=== PATIENT | male | born 1990 | race Caucasian/White ===

== ENCOUNTER 2024-07-19 23:54 | Inpatient (IN) | payer OTHER, MEDICAID, SELFPAY ==
[2024-07-20] VITALS (15 sets, daily range): BP systolic 104–126; BP diastolic 54–79; PULSE 94–149; RESP 19–28; TEMP 37.2–39.6; O2SAT 92–99; BMI 17.6; BMI 21.0
--- NOTE | 2024-07-20 00:04 | EKG_ITS ---
[address] [address] [address] [address] Test Date: 2024-07-20 Pat Name: Wilbert Gilmore Department: Room: Gender: Male Assistant Director Of Admissions: COCO LLANES : 1990 Requested By: Order Number: [id number] Reading MD: Olvin Camacho MD Measurements Intervals [place] Rate: 138 P: 44 NH: 134 QRS: 56 QRSD: 96 T: 33 QT: 288 QTc: 436 Interpretive Statements Sinus tachycardia Electronically Signed On 07-21-2024 13:38:33 PST by Olvin Camacho MD
--- NOTE | 2024-07-20 00:06 | ED_ITS ---
HPI - SOB/Dyspnea General Chief Complaint: Shortness of Breath/Dyspnea Stated Complaint: Chest pain, poss pneumonia, labored breathing Time Seen by Provider: 07/20/24 00:01 History of Present Illness HPI Narrative: 33-year-old male with history of eczema, not currently on any systemic medications presents by private vehicle from home for 1 week of gradually worsening cough, fever, shortness of breath. Family members at home tested positive for influenza 1 week ago. Patient states that he has had continued worsening shortness of breath and productive cough, especially at night. Tonight his breathing was even worse than usual and so he decided to come in for evaluation. Normally smokes cigarettes, but was unable to smoke the last week due to how poorly he was feeling. On arrival patient noted to be febrile, tachycardic, saturating 90-93% room air. Sepsis initiated 0004 Related Data Previous Rx's Medication Instructions Recorded halobetasol propionate 0.05 % 1 applic topical BID #50 grams 01/07/24 topical cream Allergies Allergy/AdvReac Type Severity Reaction Status Date / Time No Known Drug Allergies Allergy Unverified 01/07/24 16:58 Patient History Social History Smoking Status: Current every day smoker Smoking Status: Current every day smoker Exam Initial Vital Signs Initial Vital Signs: Vital Signs Pulse Rate 149 H 07/20/24 00:00 Blood Pressure 126/79 07/20/24 00:00 Pulse Oximetry 92 07/20/24 00:00 Oxygen Delivery Method Room Air 07/20/24 00:00 Const: Awake, alert, ill appearing, nontoxic Cardiac: tachycardia, regular rhythm RESP: mild increase work of breathing, no wheezing, no retractions, faint crackles RLL Skin: Warm, Dry, intact Neuro: AO x3, CN II-XII grossly intact, moves all extremities Course Orders Ordered: ED Orders 07/20/24 00:04 XR chest 1V Stat EKG-12 Lead Stat RT Consult Eval and Treat NOW 07/20/24 00:09 Complete Blood Count AUTO DIFF Stat Comprehensive Metabolic Panel Stat Lactate (Lactic Acid) Stat Lipase Stat PTT Partial Thromboplastin Rajiv Stat Procalcitonin Stat Prothrombin Time INR Stat Respiratory Panel (Film Array) Stat 07/20/24 00:15 Blood Culture Stat Acetaminophen (Acetaminophen 325 Mg Tablet) 650 mg PO Q6H PRN PRN Reason: Fever/Mild Pain (1-3) Al Hydrox/Mg Hydrox/Simethicone (Mag Hydrox/Alum/Simeth 30 Ml Udc) 30 ml PO Q6HR PRN PRN Reason: Dyspepsia Enoxaparin Sodium (Enoxaparin 40 Mg/0.4 Ml Syringe) 40 mg SUBCUT DAILY MIGUEL Sodium Chloride (Normal Saline 0.9%) 1,000 mls @ 1,000 mls/hr IV BOLUS ONE Stop: 07/20/24 01:58 Last Admin: 07/20/24 01:22 Dose: 1,000 mls/hr Naloxone HCl (Naloxone 0.4 Mg/Ml Vial) 0.2 mg IV Q2MIN PRN PRN Reason: Opiate Reversal Ondansetron HCl (Ondansetron 4 Mg/2 Ml Inj) 4 mg IV NOW PRN PRN Reason: Nausea And Vomiting Ondansetron HCl (Ondansetron 4 Mg Odt) 4 mg SL NOW PRN PRN Reason: Nausea And Vomiting Ondansetron HCl (Ondansetron 4 Mg/2 Ml Inj) 4 mg IV Q8HR PRN PRN Reason: Nausea And Vomiting Oxycodone HCl (Oxycodone Ir 5 Mg Tablet) 5 mg PO Q3H PRN PRN Reason: Pain, Moderate (4-6) Discontinued Medications Acetaminophen (Acetaminophen 325 Mg Tablet) 975 mg PO NOW ONE Stop: 07/20/24 00:15 Last Admin: 07/20/24 00:17 Dose: 975 mg Sodium Chloride (Normal Saline 0.9%) 1,000 mls @ 1,000 mls/hr IV BOLUS ONE Stop: 07/20/24 01:03 Last Infusion: 07/20/24 00:53 Dose: Infused Ceftriaxone Sodium 2,000 mg/ (Sodium Chloride) 100 mls @ 200 mls/hr IV NOW ONE Stop: 07/20/24 00:11 Last Infusion: 07/20/24 00:53 Dose: Infused Doxycycline Hyclate 100 mg/ (Sodium Chloride) 100 mls @ 100 mls/hr IV NOW ONE Stop: 07/20/24 00:11 Last Admin: 07/20/24 00:52 Dose: 100 mls/hr Vital Signs Vital signs: Vital Signs - 8 hr 07/20/24 00:00 07/20/24 00:00 07/20/24 00:05 Temperature 103.2 F H Pulse Rate 149 H 144 H Respiratory Rate 19 Blood Pressure 126/79 126/79 Pulse Oximetry 92 93 Oxygen Delivery Method Room Air Room Air 07/20/24 00:30 07/20/24 00:30 07/20/24 01:00 Temperature Pulse Rate 118 H Respiratory Rate 20 Blood Pressure 116/62 113/55 L Pulse Oximetry 92 Oxygen Delivery Method Room Air 07/20/24 01:00 07/20/24 01:11 07/20/24 01:11 Temperature Pulse Rate 120 H 121 H Respiratory Rate 28 H 25 H Blood Pressure 113/57 L Pulse Oximetry 92 93 Oxygen Delivery Method 07/20/24 01:12 Temperature Pulse Rate 145 H Respiratory Rate 20 Blood Pressure Pulse Oximetry 92 Oxygen Delivery Method MDM - SOB/Dyspnea Differential Diagnosis Differential diagnosis: Likely acute exacerbation of chronic obstructive airways disease, community acquired pneumonia and asthma with exacerbation Lab Data 07/20/24 00:09 07/20/24 00:09 Labs: Lab Results 07/20/24 Range/Units 00:09 WBC 29.2 H (4.5-11.0) X10^3/uL RBC 4.50 (4.5-5.9) X10^6/uL Hgb 12.5 L (13.5-17.5) g/dL Hct 36.9 L (41-53) % MCV 82.0 (80-100) fL MCH 27.7 (26-34) PG MCHC 33.8 (30-36) % RDW 14.0 (11.6-14.8) % Plt Count 280 (150-400) X10^3/uL Neut % (Auto) Not Reportable Lymph % (Auto) Not Reportable [place] % (Auto) Not Reportable Eos % (Auto) Not Reportable Baso % (Auto) Not Reportable Lymph # (Auto) Not Reportable [place] # (Auto) Not Reportable Baso # (Auto) Not Reportable Total Counted 100 Seg Neutrophils % 77.0 H (38-70) % Band Neutrophils % 7.0 (3-7) % Lymphocytes % (Manual) 7.0 L (25-45) % Monocytes % (Manual) 8.0 (2-11) % Metamyelocytes % 1.0 H (-0) % Neutrophils # (Manual) 21516 H (8037-5533) /uL RBC Morphology Normal morphology PT 18.9 H (9.4-12.5) SECONDS INR 1.7 H (0.9-1.3) APTT 34 (25.1-36.5) SECONDS Sodium 120 L (137-145) mmol/L Potassium 3.1 L (3.4-5.1) mmol/L Chloride 84 L (98-107) mmol/L Carbon Dioxide 28 (22-32) mmol/L BUN 22 H (9-20) mg/dL Creatinine 0.93 (0.66-1.25) mg/dL Estimated GFR > 60 (>60) mL/min BUN/Creatinine Ratio 23.7 H (6-22) Glucose 132 H (70-100) mg/dL Lactate 1.2 (0.7-2.1) mmol/L Calcium 7.9 L (8.4-10.2) mg/dL Total Bilirubin 3.4 H (0.2-1.3) mg/dL AST 74 H (17-59) IU/L ALT 111 H (<50) IU/L Alkaline Phosphatase 318 H (38-126) U/L Total Protein 7.3 (6.3-8.2) g/dL Albumin 3.5 (3.5-5.0) g/dL Globulin 3.8 (1.7-4.1) g/dL Albumin/Globulin Ratio 0.9 L (1.0-2.8) Lipase 19 L (23-300) U/L Procalcitonin 3.84 H (<0.5) ng/mL Chlamy pneumoniae PCR Not detected (Not Detect) Adenovirus (PCR) Not detected (Not Detect) B. pertussis DNA (PCR) Not detected (Not Detect) B.parapertussis DNA PCR Not detected (Not Detecte) Coronavirus OC43 (PCR) Not detected (Not Detect) Coronavirus HKU1 (PCR) Not detected (Not Detect) Coronavirus 229E (PCR) Not detected (Not Detect) SARS-CoV-2 (PCR) Not detected (Not Detecte) Coronavirus NL63 (PCR) Not detected (Not Detect) Human Metapneumovir PCR Not detected (Not Detect) Influenza Type A (PCR) Not detected (Not Detect) Influenza Type B (PCR) Not detected (Not Detect) M. pneumoniae (PCR) Not detected (Not Detect) Parainfluenza 1 (PCR) Not detected (Not Detect) Parainfluenza 2 (PCR) Not detected (Not Detect) Parainfluenza 3 (PCR) Not detected (Not Detect) Parainfluenza 4 (PCR) Not detected (Not Detect) RSV (PCR) Not detected (Not Detect) Entero/Rhino (PCR) Not detected (Not Detect) Imaging Data Chest x-ray: Radiologist's Impression: PROCEDURE: XR CHEST 1V INDICATIONS: suspected sepsis TECHNIQUE: One view of the chest was acquired. COMPARISON: None. FINDINGS: Surgical changes and devices: None. Lungs and pleura: Focal dense consolidation, lower 40% of the right lung field. No pleural effusions or pneumothorax. Mediastinum: Mediastinal contours appear normal. Heart size is normal. Bones and chest wall: No suspicious bony lesions. Overlying soft tissues appear unremarkable. IMPRESSION: Focal dense pneumonia, right lung. Comment: Progress films are recommended until clear. Dictated by: Tanmay Hurtado M.D. on 07/20/2024 at 0:17 Approved by: Tanmay Hurtado M.D. on 07/20/2024 at 0:18 ECG Data Interpretation: Sinus tachycardia at a rate of 138 beats per minute. Normal [place]. No ST T wave changes MDM Narrative Medical decision making narrative: Ill-appearing but nontoxic patient with 1 week of symptoms. Patient reports a brief improvement in his symptoms followed by worsening. Tachycardic, borderline low oxygen saturations on arrival. Sepsis workup initiated, fluids started. IV Rocephin and IV doxycycline ordered for coverage to cover for staph pneumonia. Laboratory work WBC 29.2, hemoglobin 12.5, platelet count 280, sodium 120, potassium 3.1, chloride 84, creatinine 0.93, lactic acid 1.2, calcium 7.9, T bili 3.4, AST 74, ALT 111, Alk phos 318, procalcitonin 3.84. Patient heart rate improving on fluids, but still tachycardic. Saturation stable on room air, however still low 90s. Chest x-ray shows dense right-sided bacterial lobar pneumonia. With numerous lab abnormalities and dense consolidation on exam PORT/PSI score 83 (age 33, liver (20), tachycardia (10), sodium <130 (10). Patient agrees to admission at this time. Discharge Plan Departure Patient Disposition: Admitted as Observation Clinical Impression: Bacterial pneumonia, Sepsis Admit Date/Time: 07/20/24 01:22 Admit Provider: Ganesh Wick
[2024-07-20] MEDS: SODIUM CHLORIDE 0.9% 1,000 ML 1000 ML IV ×2 (00:15→01:22)
[2024-07-20] MEDS: ACETAMINOPHEN 325 MG TABLET 975 MG PO (00:17)
[2024-07-20] MEDS: cefTRIAXone 2,000 MG in SODIUM CHLORIDE 0.9% 100 ML 200 MG IV (00:18)
[2024-07-20 00:29] LABS: Hematocrit 36.9 % (41-53); Hemoglobin 12.5 g/dL (13.5-17.5); Mean Corpuscular HGB Conc 33.8 % (30-36); Mean Corpuscular Hemoglobin 27.7 PG (26-34); Platelet Count 280 X10^3/uL (150-400); White Blood Cell Count 29.2 X10^3/uL (4.5-11.0)
[2024-07-20 00:30] LABS: Add Manual Diff / Slide Review YES; INR 1.7 (0.9-1.3); Prothrombin Time 18.9 SECONDS (9.4-12.5)
[2024-07-20 00:33] LABS: PTT Partial Thromboplastin Tim 34 SECONDS (25.1-36.5)
[2024-07-20 00:35] LABS: Alanine Aminotransferase 111 IU/L (<50); Albumin 3.5 g/dL (3.5-5.0); Albumin Globulin Ratio 0.9 (1.0-2.8); Alkaline Phosphatase 318 U/L (38-126); Aspartate Aminotransferase 74 IU/L (17-59); BUN Creatinine Ratio 23.7 (6-22); Bilirubin Total 3.4 mg/dL (0.2-1.3); Blood Urea Nitrogen 22 mg/dL (9-20); Calcium 7.9 mg/dL (8.4-10.2); Carbon Dioxide 28 mmol/L (22-32); Chloride 84 mmol/L (98-107); Estimated Glomerular Filt Rate > 60 mL/min (>60); Globulin 3.8 g/dL (1.7-4.1); Glucose 132 mg/dL (70-100); HEMOLYSIS < 15 (0-50); Lipase 19 U/L (23-300); Potassium 3.1 mmol/L (3.4-5.1); Sodium 120 mmol/L (137-145); Total Protein 7.3 g/dL (6.3-8.2)
[2024-07-20 00:36] LABS: Lactate (Lactic Acid) 1.2 mmol/L (0.7-2.1)
[2024-07-20 00:43] LABS: Neutrophils Absolute Manual 24528 /uL (3000-5900); RBC Morphology Normal Morphology; Total Cells Counted 100
[2024-07-20 00:52] LABS: Procalcitonin 3.84 ng/mL (<0.5)
[2024-07-20] MEDS: DOXYCYCLINE 100 MG in SODIUM CHLORIDE 0.9% 100 ML IV ×3 (00:52→21:18)
[2024-07-20 01:07] LABS: Adenovirus Not Detected (Not Detect); B. parapertussis Not Detected (Not Detecte); Bordetella pertussis Not Detected (Not Detect); Chlamydophila pneumoniae Not Detected (Not Detect); Coronavirus 229E Not Detected (Not Detect); Coronavirus HKU1 Not Detected (Not Detect); Coronavirus NL 63 Not Detected (Not Detect); Coronavirus OC43 Not Detected (Not Detect); Human Metapneumovirus Not Detected (Not Detect); Human Rhinovirus/Enterovirus Not Detected (Not Detect); Influenza A Not Detected (Not Detect); Influenza B Not Detected (Not Detect); Mycoplasma pneumoniae Not Detected (Not Detect); Parainfluenza Virus 1 Not Detected (Not Detect); Parainfluenza Virus 2 Not Detected (Not Detect); Parainfluenza Virus 3 Not Detected (Not Detect); Parainfluenza Virus 4 Not Detected (Not Detect); Respiratory Syncytial Virus Not Detected (Not Detect); SARS- CoV-2 Not Detected (Not Detecte)
--- NOTE | 2024-07-20 03:54 | PC.NURSE ---
machinist 2nd shift: Patient arrived onto floor approximately 0130, accompanied by mother (Janae). Ambulated from stretcher to bed. Patient is AxOx4, VSS, SpO2 in mid 90's on RA, afebrile. Reports 5/10 right-sided chest pain and pain when coughing, SOB on exertion and generalized weakness. Cont tele & p/ox in place. MD spoke with patient and family, updated on plan of care, no further questions at this time. Patient took a shower and currently resting in bed. Oriented to call-light, plan of care ongoing.
[2024-07-20] MEDS: SODIUM CHLORIDE 0.9% 1,000 ML 100 ML IV ×2 (04:35→15:18)
[2024-07-20 06:28] LABS: Hematocrit 37.1 % (41-53); Hemoglobin 12.4 g/dL (13.5-17.5); Mean Corpuscular HGB Conc 33.5 % (30-36); Mean Corpuscular Hemoglobin 27.9 PG (26-34); Mean Corpuscular Volume 83.3 fL (80-100); Platelet Count 267 X10^3/uL (150-400); Red Blood Cell Count 4.45 X10^6/uL (4.5-5.9); Red Cell Distribution Width 14.1 % (11.6-14.8); White Blood Cell Count 22.9 X10^3/uL (4.5-11.0)
--- NOTE | 2024-07-20 06:28 | P.HP_ITS ---
History of Present Illness History of Present Illness Chief complaint: Chest pain, poss pneumonia, labored breathing Narrative: 33 y/o w/o PMH presented with progressive shortness of breath, cough, generalized weakness, pleuritic chest pain, starting several days ago. CXR showing dense Rt-sided infiltrate, labs leukocytosis with Lt shift, borderline hypoxemic, tachycardic, hypotensive, febrile, septic. Admitted for IV abx and supportive care. [facility] Social History household members: family Smoking Status: Current every day smoker Meds Home Medications and Allergies Home Medications Medication Instructions Recorded Confirmed Type halobetasol propionate 0.05 % 1 applic topical BID #50 grams 01/07/24 07/20/24 Rx topical cream Allergies Allergy/AdvReac Type Severity Reaction Status Date / Time No Known Drug Allergies Allergy Unverified 01/07/24 16:58 Review of Systems Review of Systems Narrative: had fever, chills and night sweats Constitutional Comments: generalized weakness, fatigued Cardiovascular Comments: w/o palpitations Respiratory Comments: cough, shortness of breath, right-sided pleursy Exam Vital Signs (past 8 hours): - 07/20/24 00:00 07/20/24 00:00 07/20/24 00:05 Temperature 103.2 F H Pulse Rate 149 H 144 H Respiratory Rate 19 Blood Pressure 126/79 126/79 Pulse Oximetry 92 93 Oxygen Delivery Method Room Air Room Air Oxygen Flow Rate 07/20/24 00:30 07/20/24 00:30 07/20/24 01:00 Temperature Pulse Rate 118 H Respiratory Rate 20 Blood Pressure 116/62 113/55 L Pulse Oximetry 92 Oxygen Delivery Method Room Air Oxygen Flow Rate 07/20/24 01:00 07/20/24 01:11 07/20/24 01:11 Temperature Pulse Rate 120 H 121 H Respiratory Rate 28 H 25 H Blood Pressure 113/57 L Pulse Oximetry 92 93 Oxygen Delivery Method Oxygen Flow Rate 07/20/24 01:12 07/20/24 01:23 07/20/24 01:28 Temperature 99.9 F H Pulse Rate 145 H Respiratory Rate 20 Blood Pressure Pulse Oximetry 92 Oxygen Delivery Method Room Air Oxygen Flow Rate 07/20/24 01:30 07/20/24 01:30 07/20/24 01:50 Temperature 98.9 F Pulse Rate 103 H 105 H Respiratory Rate 21 24 Blood Pressure 105/54 L 115/62 Pulse Oximetry 92 94 Oxygen Delivery Method Room Air Oxygen Flow Rate 0 07/20/24 04:00 Temperature 99.3 F Pulse Rate 101 H Respiratory Rate 20 Blood Pressure 104/59 L Pulse Oximetry 95 Oxygen Delivery Method Oxygen Flow Rate 0 Oxygen Delivery Method Room Air Oxygen Flow Rate 0 Const Other: In no distress, mother at bedside HENMT Other: normocephalic Neck Other: supple Resp Other: tachypnea, rhonchi Cardio Other: Tachycardic, regular GI Other: not distended Skin Other: no rashes Objective ECG Impression: Sinus tachycardia 138 Labs 07/20/24 00:09 07/20/24 00:09 Labs: Laboratory Results - last 24 hr 07/20/24 00:09 WBC 29.2 H RBC 4.50 Hgb 12.5 L Hct 36.9 L MCV 82.0 MCH 27.7 MCHC 33.8 RDW 14.0 Plt Count 280 Neut % (Auto) Not Reportable Lymph % (Auto) Not Reportable [place] % (Auto) Not Reportable Eos % (Auto) Not Reportable Baso % (Auto) Not Reportable Lymph # (Auto) Not Reportable [place] # (Auto) Not Reportable Baso # (Auto) Not Reportable Total Counted 100 Seg Neutrophils % 77.0 H Band Neutrophils % 7.0 Lymphocytes % (Manual) 7.0 L Monocytes % (Manual) 8.0 Metamyelocytes % 1.0 H Neutrophils # (Manual) 20783 H RBC Morphology Normal morphology PT 18.9 H INR 1.7 H APTT 34 Sodium 120 L Potassium 3.1 L Chloride 84 L Carbon Dioxide 28 BUN 22 H Creatinine 0.93 Estimated GFR > 60 BUN/Creatinine Ratio 23.7 H Glucose 132 H Lactate 1.2 Calcium 7.9 L Total Bilirubin 3.4 H AST 74 H ALT 111 H Alkaline Phosphatase 318 H Total Protein 7.3 Albumin 3.5 Globulin 3.8 Albumin/Globulin Ratio 0.9 L Lipase 19 L Procalcitonin 3.84 H Chlamy pneumoniae PCR Not detected Adenovirus (PCR) Not detected B. pertussis DNA (PCR) Not detected B.parapertussis DNA PCR Not detected Coronavirus OC43 (PCR) Not detected Coronavirus HKU1 (PCR) Not detected Coronavirus 229E (PCR) Not detected SARS-CoV-2 (PCR) Not detected Coronavirus NL63 (PCR) Not detected Human Metapneumovir PCR Not detected Influenza Type A (PCR) Not detected Influenza Type B (PCR) Not detected M. pneumoniae (PCR) Not detected Parainfluenza 1 (PCR) Not detected Parainfluenza 2 (PCR) Not detected Parainfluenza 3 (PCR) Not detected Parainfluenza 4 (PCR) Not detected RSV (PCR) Not detected Entero/Rhino (PCR) Not detected Assessment & Plan Assessment and plan (1) Bacterial pneumonia: Status: Acute (2) Sepsis: Status: Acute Assessment & Plan narrative: RLL/RML PNA / Sepsis - empiric ceftriaxone and doxycycline - IVFs - cardiac rehabilitation specialist - prn albuterol, oxygen - Mucinex Smoker - nicotine patch pr DVT prophylaxis - Lovenox Time-Based Coding :: [TOTAL MINUTES] spent with patient and on the chart (including review of chart, obtaining history, exam, reviewing outside data, placing orders, documenting exam and treatment plan, and counseling patient) on [DATE].
[2024-07-20 06:31] LABS: Add Manual Diff / Slide Review YES
[2024-07-20 06:39] LABS: BUN Creatinine Ratio 23.5 (6-22); Blood Urea Nitrogen 19 mg/dL (9-20); Calcium 7.3 mg/dL (8.4-10.2); Carbon Dioxide 27 mmol/L (22-32); Chloride 91 mmol/L (98-107); Estimated Glomerular Filt Rate > 60 mL/min (>60); Glucose 143 mg/dL (70-100); HEMOLYSIS < 15 (0-50); Potassium 2.9 mmol/L (3.4-5.1); Sodium 126 mmol/L (137-145)
[2024-07-20 07:00] LABS: Neutrophils Absolute Manual 18549 /uL (3000-5900); RBC Morphology Normal Morphology; Total Cells Counted 100
--- NOTE | 2024-07-20 07:28 | PM.PN.1 ---
Subjective Subjective Date Patient Seen: 07/20/24 Interval history: He is seen today to follow-up his pneumonia, Fentanyl addiction and hypokalemia. He tells me that he is homeless, living in a camper van with his mother, using fentanyl by smoking it. The white blood count is 22.9. The INR is 1.7. The potassium is 2.9 which is being treated with 80 mEq of potassium chloride. The alk-phos is 318 with an AST of 74 and an ALT of 111. The procalcitonin is 3.84. He says he has no PCP. Exam Vital Signs (past 8 hours): - 07/20/24 00:00 07/20/24 00:00 07/20/24 00:05 Temperature 103.2 F H Pulse Rate 149 H 144 H Respiratory Rate 19 Blood Pressure 126/79 126/79 Pulse Oximetry 92 93 Oxygen Delivery Method Room Air Room Air Oxygen Flow Rate 07/20/24 00:30 07/20/24 00:30 07/20/24 01:00 Temperature Pulse Rate 118 H Respiratory Rate 20 Blood Pressure 116/62 113/55 L Pulse Oximetry 92 Oxygen Delivery Method Room Air Oxygen Flow Rate 07/20/24 01:00 07/20/24 01:11 07/20/24 01:11 Temperature Pulse Rate 120 H 121 H Respiratory Rate 28 H 25 H Blood Pressure 113/57 L Pulse Oximetry 92 93 Oxygen Delivery Method Oxygen Flow Rate 07/20/24 01:12 07/20/24 01:23 07/20/24 01:28 Temperature 99.9 F H Pulse Rate 145 H Respiratory Rate 20 Blood Pressure Pulse Oximetry 92 Oxygen Delivery Method Room Air Oxygen Flow Rate 07/20/24 01:30 07/20/24 01:30 07/20/24 01:50 Temperature 98.9 F Pulse Rate 103 H 105 H Respiratory Rate 21 24 Blood Pressure 105/54 L 115/62 Pulse Oximetry 92 94 Oxygen Delivery Method Room Air Oxygen Flow Rate 0 07/20/24 04:00 Temperature 99.3 F Pulse Rate 101 H Respiratory Rate 20 Blood Pressure 104/59 L Pulse Oximetry 95 Oxygen Delivery Method Oxygen Flow Rate 0 Oxygen Delivery Method Room Air Oxygen Flow Rate 0 Narrative Exam Narrative: He is alert and oriented x3. No apparent distress. Heart is regular rate and rhythm without murmur Lungs are clear to auscultation bilaterally except for crackles in the right base. Extremities have no ankle edema Many bruises on his legs. Objective Labs 07/20/24 06:00 07/20/24 06:00 Labs: Laboratory Results - last 24 hr 07/20/24 07/20/24 00:09 06:00 WBC 29.2 H 22.9 H RBC 4.50 4.45 L Hgb 12.5 L 12.4 L Hct 36.9 L 37.1 L MCV 82.0 83.3 MCH 27.7 27.9 MCHC 33.8 33.5 RDW 14.0 14.1 Plt Count 280 267 Neut % (Auto) Not Reportable Not Reportable Lymph % (Auto) Not Reportable Not Reportable [place] % (Auto) Not Reportable Not Reportable Eos % (Auto) Not Reportable Not Reportable Baso % (Auto) Not Reportable Not Reportable Lymph # (Auto) Not Reportable Not Reportable [place] # (Auto) Not Reportable Not Reportable Baso # (Auto) Not Reportable Not Reportable Total Counted 100 100 Seg Neutrophils % 77.0 H 76.0 H Band Neutrophils % 7.0 5.0 Lymphocytes % (Manual) 7.0 L 10.0 L Monocytes % (Manual) 8.0 6.0 Metamyelocytes % 1.0 H 3.0 H Neutrophils # (Manual) 95179 H 71969 H RBC Morphology Normal morphology Normal morphology PT 18.9 H INR 1.7 H APTT 34 Sodium 120 L 126 L Potassium 3.1 L 2.9 L Chloride 84 L 91 L Carbon Dioxide 28 27 BUN 22 H 19 Creatinine 0.93 0.81 Estimated GFR > 60 > 60 BUN/Creatinine Ratio 23.7 H 23.5 H Glucose 132 H 143 H Lactate 1.2 Calcium 7.9 L 7.3 L Total Bilirubin 3.4 H AST 74 H ALT 111 H Alkaline Phosphatase 318 H Total Protein 7.3 Albumin 3.5 Globulin 3.8 Albumin/Globulin Ratio 0.9 L Lipase 19 L Procalcitonin 3.84 H Chlamy pneumoniae PCR Not detected Adenovirus (PCR) Not detected B. pertussis DNA (PCR) Not detected B.parapertussis DNA PCR Not detected Coronavirus OC43 (PCR) Not detected Coronavirus HKU1 (PCR) Not detected Coronavirus 229E (PCR) Not detected SARS-CoV-2 (PCR) Not detected Coronavirus NL63 (PCR) Not detected Human Metapneumovir PCR Not detected Influenza Type A (PCR) Not detected Influenza Type B (PCR) Not detected M. pneumoniae (PCR) Not detected Parainfluenza 1 (PCR) Not detected Parainfluenza 2 (PCR) Not detected Parainfluenza 3 (PCR) Not detected Parainfluenza 4 (PCR) Not detected RSV (PCR) Not detected Entero/Rhino (PCR) Not detected PFSH Medical History (Updated 07/20/24 @ 11:18 by Robson Wilson MD) Fentanyl dependence Social History household members: family Smoking Status: Current every day smoker Assessment & Plan Assessment & Plan narrative: RLL/RML PNA / Sepsis - empiric ceftriaxone and doxycycline - IVFs - quality assurance monitor - prn albuterol, oxygen - Mucinex Hypokalemia/Hyponatremia -K level 3.1 and then 2.9. -40 meq Kcl PO X 2 -follow Elevated LFT -INR 1.7 -Check Hep C and Hep B -Follow Fentanyl Dependence - watch for and address withdrawal behaviors. Smoker - nicotine patch pr DVT prophylaxis - Lovenox Time-Based Coding :: [TOTAL MINUTES] spent with patient and on the chart (including review of chart, obtaining history, exam, reviewing outside data, placing orders, documenting exam and treatment plan, and counseling patient) on [DATE].
[2024-07-20] MEDS: POTASSIUM CHLORIDE 20 MEQ TAB 40 MEQ PO ×2 (07:41→12:55)
--- NOTE | 2024-07-20 08:15 | CM.DANOTE ---
Initial DCP Assessment Note Pt is a 33 yo male, resident of [place], arrives with SOB, admitted for management of PNA. Admission assessment from the bedside RN indicates patient is smoking nicotine and fentanyl. PCP: Unknown Payer: Cody GOLDMAN Reviewed chart, patient lives independently with family in [place]. No barriers identified at this time to patient's safe discharge home. CM team will plan to follow clinical course closely in case any DC needs or concerns arise. HERSON Subramanian Discharge Planning/Care Management CM Discharge Assessment Start: 07/20/24 08:14 Freq: Status: Active Protocol: Document 07/20/24 08:14 ADDISON (Rec: 07/20/24 08:15 ADDISON [id number]) Discharge Planning Assessment Assigned Poultry Scalder HERSON Nuñez DPOA/Assigned Designee Name mother [place] Contact Information [phone] Advance Directives? No History Provided By Patient,Medical Record Prior Living Arrangements House Household Members family Type of transporation used prior to Drives own vehicle admit Independent with ADL's Yes Is patient alert and oriented? Yes Barriers to Discharge No Discharge Plan Home Transportation Arrangement Family Referrals Initiated None needed
[2024-07-20] MEDS: ENOXAPARIN 40 MG/0.4 ML SYRINGE SUBCUT (10:00)
[2024-07-20] MEDS: guaiFENesin ER 600 MG TAB PO ×2 (10:00→21:18)
[2024-07-20] MEDS: ACETAMINOPHEN 325 MG TABLET 650 MG PO (12:54)
--- NOTE | 2024-07-20 13:46 | CM.DPC ---
DCP Note Continued This BLUEPRINT TRACER enters room to offer patient RIRI and community resources. Patient endorses interest in looking into detox. This BLUEPRINT TRACER provides patient with outpatient RIRI and detox resources, patient denies need for community resources. ALESSANDRA OtooleSW
[2024-07-20 18:20] LABS: BUN Creatinine Ratio 21.6 (6-22); Blood Urea Nitrogen 19 mg/dL (9-20); Calcium 7.6 mg/dL (8.4-10.2); Carbon Dioxide 29 mmol/L (22-32); Chloride 95 mmol/L (98-107); Estimated Glomerular Filt Rate > 60 mL/min (>60); Glucose 148 mg/dL (70-100); HEMOLYSIS < 15 (0-50); Potassium 3.5 mmol/L (3.4-5.1); Sodium 127 mmol/L (137-145)
[2024-07-20] MEDS: cefTRIAXone 1,000 MG in SODIUM CHLORIDE 0.9% 100 ML 200 MG IV (22:26)
[2024-07-21] VITALS (8 sets, daily range): BP systolic 103–123; BP diastolic 59–80; PULSE 69–99; RESP 14–20; TEMP 36.5–37.7; O2SAT 93–99
[2024-07-21] MEDS: ACETAMINOPHEN 325 MG TABLET 650 MG PO (00:24)
[2024-07-21] MEDS: SODIUM CHLORIDE 0.9% 1,000 ML 100 ML IV (02:01)
[2024-07-21 06:07] LABS: Hematocrit 33.7 % (41-53); Mean Corpuscular HGB Conc 32.5 % (30-36); Mean Corpuscular Hemoglobin 27.1 PG (26-34); Mean Corpuscular Volume 83.2 fL (80-100); Platelet Count 333 X10^3/uL (150-400); Red Blood Cell Count 4.05 X10^6/uL (4.5-5.9); Red Cell Distribution Width 14.3 % (11.6-14.8); White Blood Cell Count 20.7 X10^3/uL (4.5-11.0)
[2024-07-21 06:10] LABS: INR 1.4 (0.9-1.3); Prothrombin Time 15.8 SECONDS (9.4-12.5)
[2024-07-21 06:12] LABS: Add Manual Diff / Slide Review YES
[2024-07-21 06:18] LABS: Alanine Aminotransferase 64 IU/L (<50); Albumin 2.5 g/dL (3.5-5.0); Albumin Globulin Ratio 0.8 (1.0-2.8); Alkaline Phosphatase 253 U/L (38-126); Aspartate Aminotransferase 52 IU/L (17-59); BUN Creatinine Ratio 20.3 (6-22); Bilirubin Total 1.9 mg/dL (0.2-1.3); Blood Urea Nitrogen 15 mg/dL (9-20); Calcium 7.5 mg/dL (8.4-10.2); Carbon Dioxide 27 mmol/L (22-32); Chloride 98 mmol/L (98-107); Estimated Glomerular Filt Rate > 60 mL/min (>60); Globulin 3.3 g/dL (1.7-4.1); Glucose 121 mg/dL (70-100); HEMOLYSIS < 15 (0-50); Sodium 129 mmol/L (137-145); Total Protein 5.8 g/dL (6.3-8.2)
[2024-07-21 06:26] LABS: Neutrophils Absolute Manual 16353 /uL (3000-5900); Total Cells Counted 100
[2024-07-21 06:28] LABS: Target Cells 1+
[2024-07-21] MEDS: POTASSIUM CHLORIDE 20 MEQ TAB 40 MEQ PO ×2 (06:42→13:30)
--- NOTE | 2024-07-21 07:20 | P.PN_ITS ---
Subjective Subjective Date Patient Seen: 07/21/24 Interval history: He is seen today to follow-up his pneumonia, fentanyl use and hypokalemia. The potassium is 3.0 today. He will be receiving 40 mEq of potassium chloride twice today. The creatinine is 0.74. The bilirubin is 1.9 with an ALT of 64, and alkaline phosphatase of 253 and an albumin of 2.5. The white blood count has dropped from 20/2 0.9 down to 20.7. The hemoglobin is 11.0. His mother, who lives in the [facility] van with him, is sleeping on the window bench here overnight. Exam Vital Signs (past 8 hours): - 07/21/24 00:00 07/21/24 00:24 07/21/24 02:04 Temperature 99.9 F H 99.9 F H 99.0 F Pulse Rate 99 H Respiratory Rate Blood Pressure 106/59 L Pulse Oximetry 93 Oxygen Flow Rate 0 07/21/24 04:00 Temperature 98.0 F Pulse Rate 72 Respiratory Rate 20 Blood Pressure 103/59 L Pulse Oximetry 93 Oxygen Flow Rate 0 Oxygen Delivery Method Room Air Oxygen Flow Rate 0 Narrative Exam Narrative: Alert and oriented x3. No apparent distress Heart is regular rate and rhythm without murmur Lungs are clear to auscultation bilaterally Extremities have no ankle edema Objective Labs 07/21/24 05:20 07/21/24 05:20 Labs: Laboratory Results - last 24 hr 07/20/24 07/21/24 18:00 05:20 WBC 20.7 H RBC 4.05 L Hgb 11.0 L Hct 33.7 L MCV 83.2 MCH 27.1 MCHC 32.5 RDW 14.3 Plt Count 333 Neut % (Auto) Not Reportable Lymph % (Auto) Not Reportable [place] % (Auto) Not Reportable Eos % (Auto) Not Reportable Baso % (Auto) Not Reportable Lymph # (Auto) Not Reportable [place] # (Auto) Not Reportable Baso # (Auto) Not Reportable Total Counted 100 Seg Neutrophils % 72.0 H Band Neutrophils % 7.0 Lymphocytes % (Manual) 12.0 L Atypical Lymphs % 1.0 H Monocytes % (Manual) 6.0 Eosinophils % (Manual) 1.0 L Metamyelocytes % 1.0 H Neutrophils # (Manual) 68078 H RBC Morphology See below Target Cells 1+ H PT 15.8 H INR 1.4 H Sodium 127 L 129 L Potassium 3.5 3.0 L Chloride 95 L 98 Carbon Dioxide 29 27 BUN 19 15 Creatinine 0.88 0.74 Estimated GFR > 60 > 60 BUN/Creatinine Ratio 21.6 20.3 Glucose 148 H 121 H Calcium 7.6 L 7.5 L Total Bilirubin 1.9 H AST 52 ALT 64 H Alkaline Phosphatase 253 H Total Protein 5.8 L Albumin 2.5 L Globulin 3.3 Albumin/Globulin Ratio 0.8 L PFSH Medical History (Updated 07/20/24 @ 11:18 by Robson Wilson MD) Fentanyl dependence Social History household members: family Smoking Status: Current every day smoker Assessment & Plan Assessment & Plan narrative: RLL/RML PNA / Sepsis - Elevated WBC of 22.9 - Ceftriaxone and doxycycline - IVFs given and then stopped on 07/21 - cardiac cath lab technologist - prn albuterol, oxygen - Mucinex Hypokalemia/Hyponatremia -likely a function of malnourishment. -K level 3.1, 2.9 and then 3.0 -40 meq Kcl PO X 2 given on both 07/20 and 07/21 -sodium 129 on 07/21 -follow Elevated LFT -improving -INR 1.7, down to 1.4 on 07/21 -Check Hep C and Hep B -Follow Fentanyl Dependence - watch for and address withdrawal behaviors. Smoker - nicotine patch pr DVT prophylaxis - Lovenox Disposition: Return home with family as soon as 07/22? Time-Based Coding :: [TOTAL MINUTES] spent with patient and on the chart (including review of chart, obtaining history, exam, reviewing outside data, placing orders, documenting exam and treatment plan, and counseling patient) on [DATE].
[2024-07-21] MEDS: ENOXAPARIN 40 MG/0.4 ML SYRINGE SUBCUT (08:26)
[2024-07-21] MEDS: guaiFENesin ER 600 MG TAB PO ×2 (08:27→21:23)
[2024-07-21] MEDS: DOXYCYCLINE 100 MG in SODIUM CHLORIDE 0.9% 100 ML IV ×2 (11:10→22:57)
--- NOTE | 2024-07-21 12:13 | CM.DPNOTE ---
DCP note REHAB CARE ASSISTANT reviewed EMR Per provider in morning rounds, potential dc tomorrow. getting another day of IV abx. REHAB CARE ASSISTANT met with pt and mom in room. pt pleasant but not very chatty. pt reported that his mom has hx of working with [facility] for MH/RIRI/physical PCP OP f/u and plans to go there for walk in appt after discharge from here. denies any questions or concerns about it. Pt and mom deny wanting other comm/basic resources such as housing/food/etc from this REHAB CARE ASSISTANT at this time. P: return to [facility] with mom when medically stable, pt plans to f/u with [facility] for MH tx/OP rehab f/u for fentanyl use/establish PCP care. No CM needs at this time and CM team will continue to follow as needed. HERSON Calles
[2024-07-21] MEDS: cefTRIAXone 1,000 MG in SODIUM CHLORIDE 0.9% 100 ML 200 MG IV (21:23)
[2024-07-22] VITALS: BP 108/66; PULSE 78; RESP 18; TEMP 37.4; O2SAT 93
[2024-07-22 04:00] VITALS: BP 137/69; PULSE 74; RESP 18; TEMP 36.8; O2SAT 94
[2024-07-22 06:49] LABS: Hematocrit 35.3 % (41-53); Hemoglobin 11.7 g/dL (13.5-17.5); Mean Corpuscular HGB Conc 33.1 % (30-36); Mean Corpuscular Hemoglobin 27.6 PG (26-34); Mean Corpuscular Volume 83.3 fL (80-100); Platelet Count 459 X10^3/uL (150-400); Red Blood Cell Count 4.24 X10^6/uL (4.5-5.9); Red Cell Distribution Width 14.5 % (11.6-14.8); White Blood Cell Count 17.4 X10^3/uL (4.5-11.0)
[2024-07-22 06:52] LABS: Add Manual Diff / Slide Review YES
[2024-07-22 07:01] LABS: Alanine Aminotransferase 71 IU/L (<50); Albumin 2.7 g/dL (3.5-5.0); Albumin Globulin Ratio 0.8 (1.0-2.8); Alkaline Phosphatase 257 U/L (38-126); Aspartate Aminotransferase 59 IU/L (17-59); BUN Creatinine Ratio 19.4 (6-22); Bilirubin Total 1.4 mg/dL (0.2-1.3); Blood Urea Nitrogen 12 mg/dL (9-20); Calcium 7.7 mg/dL (8.4-10.2); Carbon Dioxide 24 mmol/L (22-32); Chloride 100 mmol/L (98-107); Estimated Glomerular Filt Rate > 60 mL/min (>60); Globulin 3.4 g/dL (1.7-4.1); Glucose 101 mg/dL (70-100); HEMOLYSIS < 15 (0-50); Potassium 3.8 mmol/L (3.4-5.1); Sodium 129 mmol/L (137-145); Total Protein 6.1 g/dL (6.3-8.2)
[2024-07-22 07:05] LABS: Neutrophils Absolute Manual 12180 /uL (3000-5900); RBC Morphology Normal Morphology; Total Cells Counted 100
--- NOTE | 2024-07-22 07:22 | P.PN_ITS ---
Subjective Subjective Date Patient Seen: 07/22/24 Exam Vital Signs (past 8 hours): - 07/22/24 00:00 07/22/24 04:00 Temperature 99.3 F 98.3 F Pulse Rate 78 74 Respiratory Rate 18 18 Blood Pressure 108/66 137/69 Pulse Oximetry 93 94 Oxygen Flow Rate 0 0 Oxygen Delivery Method Room Air Oxygen Flow Rate 0 Objective Labs 07/22/24 06:30 07/22/24 06:30 Labs: Laboratory Results - last 24 hr 07/22/24 06:30 WBC 17.4 H RBC 4.24 L Hgb 11.7 L Hct 35.3 L MCV 83.3 MCH 27.6 MCHC 33.1 RDW 14.5 Plt Count 459 H Neut % (Auto) Not Reportable Lymph % (Auto) Not Reportable [place] % (Auto) Not Reportable Eos % (Auto) Not Reportable Baso % (Auto) Not Reportable Lymph # (Auto) Not Reportable [place] # (Auto) Not Reportable Baso # (Auto) Not Reportable Total Counted 100 Seg Neutrophils % 70.0 Lymphocytes % (Manual) 15.0 L Atypical Lymphs % 4.0 H Monocytes % (Manual) 11.0 Neutrophils # (Manual) 78375 H RBC Morphology Normal morphology Sodium 129 L Potassium 3.8 Chloride 100 Carbon Dioxide 24 BUN 12 Creatinine 0.62 L Estimated GFR > 60 BUN/Creatinine Ratio 19.4 Glucose 101 H Calcium 7.7 L Total Bilirubin 1.4 H AST 59 ALT 71 H Alkaline Phosphatase 257 H Total Protein 6.1 L Albumin 2.7 L Globulin 3.4 Albumin/Globulin Ratio 0.8 L PFSH Medical History (Updated 07/20/24 @ 11:18 by Robson Wilson MD) Fentanyl dependence Social History household members: family Smoking Status: Current every day smoker Assessment & Plan Assessment & Plan narrative: RLL/RML PNA / Sepsis - Elevated WBC of 22.9 - Ceftriaxone and doxycycline - IVFs given and then stopped on 07/21 - cardiac cath lab manager - prn albuterol, oxygen - Mucinex Hypokalemia/Hyponatremia -likely a function of malnourishment. -K level 3.1, 2.9 and then 3.0 -40 meq Kcl PO X 2 given on both 07/20 and 07/21 -sodium 129 on 07/21 -follow Elevated LFT -improving -INR 1.7, down to 1.4 on 07/21 -Check Hep C and Hep B -Follow Fentanyl Dependence - watch for and address withdrawal behaviors. Smoker - nicotine patch pr DVT prophylaxis - Lovenox Disposition: Return home with family as soon as 07/22? Time-Based Coding :: [TOTAL MINUTES] spent with patient and on the chart (including review of chart, obtaining history, exam, reviewing outside data, placing orders, documenting exam and treatment plan, and counseling patient) on [DATE].
[2024-07-22 07:59] LABS: Hep C Virus Ab w/Reflex Quant NEGATIVE s/c (NEGATIVE); Hepatitis B Surface Antigen NEGATIVE s/c (NEGATIVE)
[2024-07-22 08:00] VITALS: BP 122/77; PULSE 66; RESP 18; TEMP 36.8; O2SAT 94
[2024-07-22] MEDS: guaiFENesin ER 600 MG TAB PO (09:35)
--- NOTE | 2024-07-22 10:37 | PM.DS.1 ---
History of Present Illness History of Present Illness Date Patient Seen: 07/22/24 Chief complaint: Chest pain, poss pneumonia, labored breathing Narrative: 33 y/o w/o PMH presented with progressive shortness of breath, cough, generalized weakness, pleuritic chest pain, starting several days ago. CXR showing dense Rt-sided infiltrate, labs leukocytosis with Lt shift, borderline hypoxemic, tachycardic, hypotensive, febrile, septic. Admitted for IV abx and supportive care. Discharge Providers Provider Date of admission: 07/20/24 01: Discharge Date: 07/22/24 Primary care physician: Doctor Miya MD Discharge provider: Robson Wilson MD Summary Hospital Course Discharge Diagnosis: RLL/RML PNA / Sepsis - Elevated WBC of 22.9 - Ceftriaxone and doxycycline - IVFs given and then stopped on 07/21 - Clinically resolving at discharge on 07/22 - 7 more days of PO Augmentin. Hypokalemia/Hyponatremia -likely a function of malnourishment. -K level 3.1, 2.9, 3.0 and then 3.8 -40 meq Kcl PO X 2 given on both 07/20 and 07/21 -sodium 129 on 07/21 and 07/22 -followup with new PCP Elevated LFT -improving -INR 1.7, down to 1.4 on 07/21 -Negative for both Hep C and Hep B -Followup with new PCP Fentanyl Dependence - no withdrawal behaviors Smoker - nicotine patch pr Exam Vital Signs (past 8 hours): - 07/22/24 04:00 07/22/24 08:00 Temperature 98.3 F 98.2 F Pulse Rate 74 66 Respiratory Rate 18 18 Blood Pressure 137/69 122/77 Pulse Oximetry 94 94 Oxygen Flow Rate 0 0 Oxygen Delivery Method Room Air Oxygen Flow Rate 0 Objective Labs 07/22/24 06:30 07/22/24 06:30 Labs: Laboratory Results - last 24 hr 07/22/24 06:30 WBC 17.4 H RBC 4.24 L Hgb 11.7 L Hct 35.3 L MCV 83.3 MCH 27.6 MCHC 33.1 RDW 14.5 Plt Count 459 H Neut % (Auto) Not Reportable Lymph % (Auto) Not Reportable [place] % (Auto) Not Reportable Eos % (Auto) Not Reportable Baso % (Auto) Not Reportable Lymph # (Auto) Not Reportable [place] # (Auto) Not Reportable Baso # (Auto) Not Reportable Total Counted 100 Seg Neutrophils % 70.0 Lymphocytes % (Manual) 15.0 L Atypical Lymphs % 4.0 H Monocytes % (Manual) 11.0 Neutrophils # (Manual) 28228 H RBC Morphology Normal morphology Sodium 129 L Potassium 3.8 Chloride 100 Carbon Dioxide 24 BUN 12 Creatinine 0.62 L Estimated GFR > 60 BUN/Creatinine Ratio 19.4 Glucose 101 H Calcium 7.7 L Total Bilirubin 1.4 H AST 59 ALT 71 H Alkaline Phosphatase 257 H Total Protein 6.1 L Albumin 2.7 L Globulin 3.4 Albumin/Globulin Ratio 0.8 L Hep Bs Antigen Negative Hepatitis C Antibody Negative PFSH Medical History (Updated 07/20/24 @ 11:18 by Robson Wilson MD) Fentanyl dependence Social History household members: family Smoking Status: Current every day smoker Discharge Plan Discharge Plan Patient Disposition: Home Provider Discharge Comment: Please establish with a new PCP and see them in the next 2 weeks for followup. Discharge orders & Medications Prescriptions: New amoxicillin-pot clavulanate 875-125 mg tablet 1 tab PO Q12H Qty: 14 0RF Continued halobetasol propionate 0.05 % cream 1 applic topical BID Qty: 50 0RF Follow up/Referrals: Doctor Holliday MD [Primary Care Provider] - Diet/Activity/Treatments Diet: Regular Visit Report/Discharge Packet Instructions: DI for Pneumonia -- Adult, DI for Substance Use Disorder Stand Alone Forms: Patient Portal/API, Stroke Signs & Symptoms Discharge Data Primary Care Provider: Doctor Miya
--- NOTE | 2024-07-22 11:06 | CM.DPNOTE ---
DCP note LOADING RACK SUPERVISOR reviewed EMR per provider in morning rounds, plan to dc today. LOADING RACK SUPERVISOR met with pt in room. Denied RIRI/comm resources from this LOADING RACK SUPERVISOR. Reports not having established primary care and does not want this LOADING RACK SUPERVISOR to make a referral for him to do so at . reports he will either go to the walk in clinic or [facility] if needing OP level medical care. P: return to [facility] with mom support. no further CM needs identified at this time. HERSON Calles
== END 2024-07-22 11:20 | disposition home or self-care (01) | DRG 720 ==
LOC: ED 07-20 00:01 → AC 07-20 01:43
PROVIDERS: Family Medicine; Admitting Provider Internal Medicine; Emergency Provider Emergency Medicine; Visit Provider Internal Medicine
DX: A41.9 Sepsis, unspecified organism (principal); J15.9 Unspecified bacterial pneumonia; E87.1 Hypo-osmolality and hyponatremia; E87.6 Hypokalemia; F11.20 Opioid dependence, uncomplicated; R09.02 Hypoxemia; R79.89 Other specified abnormal findings of blood chemistry; F17.210 Nicotine dependence, cigarettes, uncomplicated; Z59.02 Unsheltered homelessness
CPT/HCPCS: 36415; 71045; 80048; 80053; 83605; 83690; 84145; 85007; 85025; 85610; 85730; 86803; 87040; 87340; 87633; 93005; 93010; 96365; 96367; 99285; J0696; J1650